=== PATIENT | male | born 1940 | race Caucasian/White ===

== ENCOUNTER 2018-11-05 08:45 | Outpatient (REF) | payer BC, SELFPAY ==
[2018-11-05 21:28] LABS: Anion Gap 11.2 mmol/L (3-11); BUN 14 mg/dL (7-18); CO2 23.8 mmol/L (21.0-32.0); CREATININE 1.07 mg/dL (0.70-1.30); Calcium 8.9 mg/dL (8.5-10.1); Chloride 106 mmol/L (98-107); Cholesterol 165 mg/dL (50-200); Glucose 104 mg/dL (70-100); HDL Cholesterol 29 mg/dL (40-60); LDL CHOLESTEROL 113 mg/dL (<100); Potassium 4.4 mmol/L (3.5-5.1); Sodium 141 mmol/L (136-145); Triglyceride 129 mg/dL (30-150)
== END 2018-11-05 09:05 ==
LOC: NCHCN 08:45
PROVIDERS: Visit Provider Internal Medicine
DX: Z00.00 Encounter for general adult medical examination without abnormal findings (principal); Z13.220 Encounter for screening for lipoid disorders
CPT/HCPCS: 80048; 80061; 83721

== ENCOUNTER 2020-04-09 22:17 | Outpatient (REF) | payer BC, SELFPAY ==
[2020-04-09 22:39] LABS: HCT 46.2 % (40.0-50.0); Mean Corp. HGB Concentration 34.6 g/dL (32.0-36.0); Mean Corpuscular Hemoglobin 34.9 pg (27.0-33.0); Mean Corpuscular Volume 100.9 fL (80-95); Mean Platelet Volume 11.9 fL (8.0-11.0); Platelet Count 120 x1000/uL (130-400); RBC 4.58 m/cumm (4.50-6.00); RBC Distribution Width 13.8 % (11.8-14.1); White Blood Cell Count 5.91 k/cumm (4.4-10.8)
[2020-04-09 22:53] LABS: ALT 75 U/L (16-63); AST 86 U/L (15-37); Albumin 3.3 g/dL (3.4-5.0); Alkaline Phosphatase 186 U/L (46-116); Anion Gap 9.7 mmol/L (3-11); BUN 12 mg/dL (7-18); Bilirubin, Total 0.7 mg/dL (0.2-1.0); CO2 23.3 mmol/L (21.0-32.0); CREATININE 1.06 mg/dL (0.70-1.30); Calcium 8.7 mg/dL (8.5-10.1); Calculated LDL 88 mg/dL (<100); Chloride 109 mmol/L (98-107); Cholesterol 143 mg/dL (<200); Glucose 82 mg/dL (74-106); HDL Cholesterol 31 mg/dL (40-60); Potassium 4.2 mmol/L (3.5-5.1); Sodium 142 mmol/L (136-145); Total Protein 7.1 g/dL (6.4-8.2); Triglyceride 123 mg/dL (<150)
[2020-04-09 23:00] LABS: Hemoglobin A1C 5.6 % (3.8-5.6)
== END 2020-04-09 22:37 ==
LOC: NCHCN 22:17
PROVIDERS: Visit Provider Internal Medicine
DX: I10 Essential (primary) hypertension (principal); K76.0 Fatty (change of) liver, not elsewhere classified
CPT/HCPCS: 80053; 80061; 85027; 83036

== ENCOUNTER 2021-02-06 21:05 | Outpatient (REF) | payer BC, SELFPAY ==
[2021-02-06 22:18] LABS: HCT 27.4 % (40.0-50.0); HGB 8.6 g/dL (13.5-17.5); MCH 31.7 pg (27.0-33.0); MCHC 31.4 % (32.0-36.0); MCV 101.1 fL (80-95); Platelet Count 175 10^3/uL (130-400); RBC 2.71 10^6/uL (4.36-5.78); RDW 19.5 % (11.8-14.1); RDW-SD 71.1 fL; WBC 7.45 10^3/uL (4.4-10.8)
[2021-02-06 22:31] LABS: ALT 88 U/L (16-63); AST 57 U/L (15-37); Albumin 2.3 g/dL (3.4-5.0); Alkaline Phosphatase 225 U/L (46-116); Anion Gap 9.1 mmol/L (3-11); BUN 12 mg/dL (7-18); Bilirubin, Total 0.6 mg/dL (0.2-1.0); CO2 24.9 mmol/L (21.0-32.0); CREATININE 1.2 mg/dL (0.70-1.30); Calcium 7.9 mg/dL (8.5-10.1); Calculated LDL 49 mg/dL (<100); Chloride 109 mmol/L (98-107); Cholesterol 93 mg/dL (<200); Estimated GFR 58.11 (mL/min/1.73m2); Glucose 93 mg/dL (74-106); HDL Cholesterol 28 mg/dL (40-60); Potassium 4.5 mmol/L (3.5-5.1); Sodium 143 mmol/L (136-145); Total Protein 5.3 g/dL (6.4-8.2); Triglyceride 82 mg/dL (<150)
== END 2021-02-06 21:06 | disposition home or self-care (01) ==
LOC: NCHCN 21:05
PROVIDERS: Visit Provider Internal Medicine
DX: I10 Essential (primary) hypertension (principal); K74.60 Unspecified cirrhosis of liver
CPT/HCPCS: 80053; 80061; 85027

== ENCOUNTER 2021-02-18 16:37 | Outpatient (REF) | payer BC, SELFPAY ==
[2021-02-18 21:27] LABS: INR 1.1 (0.9-1.1); Prothrombin Time 11.5 sec (9.3-11.0)
[2021-02-18 21:33] LABS: Abs Immature Grans 0.03 10^3/uL (0.0-0.06); Absolute Basophil Count 0.05 10^3/uL (0.0-0.2); Absolute Lymphocyte Count 1.75 10^3/uL (1.2-3.4); Absolute Monocyte Count 0.87 10^3/uL (0.1-0.8); Absolute Neutrophil Count 4.74 10^3/uL (1.2-6.7); Basophils % 0.7; Eosinophils % 2.6; HCT 29.8 % (40.0-50.0); HGB 9.1 g/dL (13.5-17.5); Immature Grans % 0.4; Lymphocytes % 22.9; MCH 31.2 pg (27.0-33.0); MCHC 30.5 % (32.0-36.0); MCV 102.1 fL (80-95); MPV 11.1 fL (8.0-11.0); Monocytes % 11.4; Nucleated RBC 0 %; Platelet Count 232 10^3/uL (130-400); RBC 2.92 10^6/uL (4.36-5.78); RDW 17.2 % (11.8-14.1); WBC 7.64 10^3/uL (4.4-10.8)
[2021-02-18 21:56] LABS: ALT 43 U/L (16-63); AST 39 U/L (15-37); Albumin 2.6 g/dL (3.4-5.0); Alkaline Phosphatase 164 U/L (46-116); BUN 13 mg/dL (7-18); Bilirubin, Total 0.4 mg/dL (0.2-1.0); CREATININE 1.1 mg/dL (0.70-1.30); Chloride 107 mmol/L (98-107); Glucose 112 mg/dL (74-106); Potassium 5.2 mmol/L (3.5-5.1); Sodium 140 mmol/L (136-145)
== END 2021-02-18 16:38 | disposition home or self-care (01) ==
LOC: NCHCN 16:37
PROVIDERS: Visit Provider Internal Medicine
DX: R10.13 Epigastric pain (principal); R18.8 Other ascites; K74.60 Unspecified cirrhosis of liver; K92.2 Gastrointestinal hemorrhage, unspecified
CPT/HCPCS: 80053; 85025; 85610

== ENCOUNTER 2021-02-19 14:47 | Outpatient (REF) | payer BC, SELFPAY ==
[2021-02-19 15:03] LABS: C Diff PCR Positive (Negative)
[2021-02-19 20:49] LABS: Campylobacter PCR Negative (Negative); Salmonella PCR Negative (Negative); Shiga Toxin PCR Negative (Negative); Shigella/Enteroinvasive Ecoli Negative (Negative)
== END 2021-02-19 14:48 | disposition home or self-care (01) ==
LOC: NCHCN 14:47
PROVIDERS: PCP Internal Medicine; Visit Provider Internal Medicine
DX: R19.7 Diarrhea, unspecified (principal); R10.13 Epigastric pain
CPT/HCPCS: 87329; 87493; 87505

== ENCOUNTER 2021-02-22 18:08 | Outpatient (REF) | payer BC, SELFPAY ==
[2021-02-22 21:30] LABS: Abs Immature Grans 0.04 10^3/uL (0.0-0.06); Absolute Basophil Count 0.06 10^3/uL (0.0-0.2); Absolute Eosinophil Count 0.25 10^3/uL (0.0-0.7); Absolute Lymphocyte Count 1.62 10^3/uL (1.2-3.4); Absolute Monocyte Count 0.82 10^3/uL (0.1-0.8); Absolute Neutrophil Count 5.17 10^3/uL (1.2-6.7); Basophils % 0.8; Eosinophils % 3.1; HCT 31.7 % (40.0-50.0); HGB 9.5 g/dL (13.5-17.5); Immature Grans % 0.5; Lymphocytes % 20.4; MCH 30.1 pg (27.0-33.0); MCV 100.3 fL (80-95); MPV 11.1 fL (8.0-11.0); Monocytes % 10.3; Neutrophils % 64.9; Nucleated RBC 0 %; Platelet Count 251 10^3/uL (130-400); RBC 3.16 10^6/uL (4.36-5.78); RDW 16.8 % (11.8-14.1); RDW-SD 61.8 fL; WBC 7.96 10^3/uL (4.4-10.8)
== END 2021-02-22 18:09 | disposition home or self-care (01) ==
LOC: NCHCN 18:08
PROVIDERS: PCP Internal Medicine; Visit Provider Internal Medicine
DX: K92.2 Gastrointestinal hemorrhage, unspecified (principal); R10.13 Epigastric pain; I86.4 Gastric varices
CPT/HCPCS: 85025

== ENCOUNTER 2021-03-14 14:57 | Outpatient (REF) | payer BC, SELFPAY ==
[2021-03-14 19:53] LABS: HCT 31.2 % (40.0-50.0); HGB 9.5 g/dL (13.5-17.5); MCH 29.7 pg (27.0-33.0); MCHC 30.4 % (32.0-36.0); MCV 97.5 fL (80-95); MPV 11.8 fL (8.0-11.0); Platelet Count 181 10^3/uL (130-400); RDW 16.7 % (11.8-14.1); RDW-SD 59.9 fL; WBC 5.51 10^3/uL (4.4-10.8)
[2021-03-14 20:02] LABS: ALT 26 U/L (16-63); AST 36 U/L (15-37); Albumin 2.8 g/dL (3.4-5.0); Alkaline Phosphatase 144 U/L (46-116); BUN 14 mg/dL (7-18); Bilirubin, Total 0.5 mg/dL (0.2-1.0); CREATININE 1.2 mg/dL (0.70-1.30); Calcium 8.8 mg/dL (8.5-10.1); Chloride 111 mmol/L (98-107); Estimated GFR 58.11 (mL/min/1.73m2); Glucose 87 mg/dL (74-106); Potassium 4.4 mmol/L (3.5-5.1); Sodium 144 mmol/L (136-145); Total Protein 6.4 g/dL (6.4-8.2)
== END 2021-03-14 14:58 | disposition home or self-care (01) ==
LOC: NCHCN 14:57
PROVIDERS: PCP Internal Medicine; Visit Provider Internal Medicine
DX: K74.60 Unspecified cirrhosis of liver (principal); K92.2 Gastrointestinal hemorrhage, unspecified
CPT/HCPCS: 80053; 85027

== ENCOUNTER 2021-04-05 21:22 | Outpatient (REF) | payer BC, SELFPAY ==
[2021-04-05 20:39] LABS: HCT 35.1 % (40.0-50.0); HGB 10.7 g/dL (13.5-17.5); MCHC 30.5 % (32.0-36.0); MCV 95.1 fL (80-95); MPV 12.3 fL (8.0-11.0); Platelet Count 164 10^3/uL (130-400); RBC 3.69 10^6/uL (4.36-5.78); RDW 16.7 % (11.8-14.1); RDW-SD 58.3 fL; WBC 6.16 10^3/uL (4.4-10.8)
[2021-04-05 21:00] LABS: Iron 33 ug/dL (65-175); Total Iron Binding Capacity 373 ug/dL (250-450); Transferrin Sat 9 % (20-55)
[2021-04-05 21:12] LABS: ALT 38 U/L (16-63); AST 31 U/L (15-37); Albumin 3.2 g/dL (3.4-5.0); Alkaline Phosphatase 179 U/L (46-116); Anion Gap 8.9 mmol/L (3-11); BUN 16 mg/dL (7-18); Bilirubin, Total 0.4 mg/dL (0.2-1.0); CO2 25.1 mmol/L (21.0-32.0); CREATININE 1.3 mg/dL (0.70-1.30); Calcium 8.6 mg/dL (8.5-10.1); Chloride 107 mmol/L (98-107); Estimated GFR 52.98 (mL/min/1.73m2); Ferritin 26 ng/mL (26-388); Glucose 83 mg/dL (74-106); Potassium 4.4 mmol/L (3.5-5.1); Sodium 141 mmol/L (136-145); Total Protein 7.1 g/dL (6.4-8.2)
== END 2021-04-05 21:23 | disposition home or self-care (01) ==
LOC: NCHCN 21:22
PROVIDERS: PCP Internal Medicine; Visit Provider Internal Medicine
DX: D64.9 Anemia, unspecified (principal); K74.60 Unspecified cirrhosis of liver; R53.83 Other fatigue
CPT/HCPCS: 80053; 85027; 82728; 83540; 83550

== ENCOUNTER 2021-07-08 11:10 | Outpatient (REF) | payer BC, SELFPAY ==
[2021-07-08 13:43] LABS: HCT 37.1 % (40.0-50.0); HGB 12.1 g/dL (13.5-17.5); MCH 30.8 pg (27.0-33.0); MCHC 32.6 % (32.0-36.0); MCV 94.4 fL (80-95); MPV 12.1 fL (8.0-11.0); Platelet Count 120 10^3/uL (130-400); RBC 3.93 10^6/uL (4.36-5.78); RDW 17.2 % (11.8-14.1); RDW-SD 60.2 fL; WBC 5.15 10^3/uL (4.4-10.8)
[2021-07-08 14:06] LABS: Iron 75 ug/dL (65-175); Total Iron Binding Capacity 346 ug/dL (250-450); Transferrin Sat 22 % (20-55)
[2021-07-08 14:22] LABS: ALT 32 U/L (16-63); AST 37 U/L (15-37); Alkaline Phosphatase 144 U/L (46-116); Anion Gap 8.8 mmol/L (3-11); BUN 16 mg/dL (7-18); Bilirubin, Total 0.8 mg/dL (0.2-1.0); CO2 25.2 mmol/L (21.0-32.0); CREATININE 1.2 mg/dL (0.70-1.30); Calcium 8.7 mg/dL (8.5-10.1); Chloride 112 mmol/L (98-107); Estimated GFR 58.11 (mL/min/1.73m2); Ferritin 35 ng/mL (26-388); Glucose 120 mg/dL (74-106); Potassium 3.9 mmol/L (3.5-5.1); Sodium 146 mmol/L (136-145); Total Protein 6.8 g/dL (6.4-8.2)
== END 2021-07-08 11:11 | disposition home or self-care (01) ==
LOC: NCHCN 11:10
PROVIDERS: PCP Internal Medicine; Visit Provider Internal Medicine
DX: D64.9 Anemia, unspecified (principal); K74.60 Unspecified cirrhosis of liver; K92.2 Gastrointestinal hemorrhage, unspecified
CPT/HCPCS: 80053; 85027; 82728; 83540; 83550

== ENCOUNTER 2021-10-03 16:36 | Outpatient (REF) | payer BC, SELFPAY ==
[2021-10-03 20:57] LABS: Abs Immature Grans 0.01 10^3/uL (0.0-0.06); Absolute Basophil Count 0.07 10^3/uL (0.0-0.2); Absolute Eosinophil Count 0.34 10^3/uL (0.0-0.7); Absolute Lymphocyte Count 2.06 10^3/uL (1.2-3.4); Absolute Monocyte Count 0.65 10^3/uL (0.1-0.8); Absolute Neutrophil Count 2.98 10^3/uL (1.2-6.7); Basophils % 1.1; Eosinophils % 5.6; HCT 40.8 % (40.0-50.0); HGB 13.4 g/dL (13.5-17.5); Immature Grans % 0.2; Lymphocytes % 33.7; MCH 31.5 pg (27.0-33.0); MCHC 32.8 % (32.0-36.0); MCV 95.8 fL (80-95); MPV 12.2 fL (8.0-11.0); Monocytes % 10.6; Neutrophils % 48.8; Nucleated RBC 0 %; Platelet Count 114 10^3/uL (130-400); RBC 4.26 10^6/uL (4.36-5.78); RDW 15.3 % (11.8-14.1); RDW-SD 54.6 fL; WBC 6.11 10^3/uL (4.4-10.8)
[2021-10-03 21:11] LABS: ALT 44 U/L (16-63); AST 40 U/L (15-37); Albumin 3.2 g/dL (3.4-5.0); Alkaline Phosphatase 148 U/L (46-116); Anion Gap 8.4 mmol/L (3-11); BUN 22 mg/dL (7-18); Bilirubin, Total 0.8 mg/dL (0.2-1.0); CO2 25.6 mmol/L (21.0-32.0); CREATININE 1.4 mg/dL (0.70-1.30); Calcium 8.8 mg/dL (8.5-10.1); Chloride 110 mmol/L (98-107); Estimated GFR 48.64 (mL/min/1.73m2); Glucose 106 mg/dL (74-106); Potassium 4.5 mmol/L (3.5-5.1); Sodium 144 mmol/L (136-145); Total Protein 7.1 g/dL (6.4-8.2)
== END 2021-10-03 16:37 | disposition home or self-care (01) ==
LOC: NCHCN 16:36
PROVIDERS: PCP Internal Medicine; Visit Provider Internal Medicine
DX: D64.9 Anemia, unspecified (principal); K74.60 Unspecified cirrhosis of liver
CPT/HCPCS: 80053; 85025

== ENCOUNTER 2021-11-01 15:04 | Outpatient (REF) | payer BC, SELFPAY ==
[2021-11-01 21:32] LABS: Anion Gap 8.6 mmol/L (3-11); BUN 20 mg/dL (7-18); CO2 24.4 mmol/L (21.0-32.0); CREATININE 1.2 mg/dL (0.70-1.30); Calcium 8.5 mg/dL (8.5-10.1); Chloride 110 mmol/L (98-107); Estimated GFR 58.11 (mL/min/1.73m2); Glucose 87 mg/dL (74-106); Potassium 4.9 mmol/L (3.5-5.1); Sodium 143 mmol/L (136-145)
== END 2021-11-01 15:05 | disposition home or self-care (01) ==
LOC: NCHCN 15:04
PROVIDERS: PCP Internal Medicine; Visit Provider Internal Medicine
DX: K74.60 Unspecified cirrhosis of liver (principal); D12.6 Benign neoplasm of colon, unspecified
CPT/HCPCS: 80048

== ENCOUNTER 2021-12-26 16:50 | Outpatient (REF) | payer BC, SELFPAY ==
[2021-12-26 15:57] LABS: Abs Immature Grans 0.01 10^3/uL (0.0-0.06); Absolute Basophil Count 0.07 10^3/uL (0.0-0.2); Absolute Eosinophil Count 0.31 10^3/uL (0.0-0.7); Absolute Lymphocyte Count 1.32 10^3/uL (1.2-3.4); Absolute Monocyte Count 0.63 10^3/uL (0.1-0.8); Absolute Neutrophil Count 3.39 10^3/uL (1.2-6.7); Basophils % 1.2; Eosinophils % 5.4; HCT 42.1 % (40.0-50.0); HGB 13.4 g/dL (13.5-17.5); Immature Grans % 0.2; MCH 32.1 pg (27.0-33.0); MCHC 31.8 % (32.0-36.0); MCV 100.7 fL (80-95); MPV 12.3 fL (8.0-11.0); Neutrophils % 59.2; Nucleated RBC 0 %; Platelet Count 123 10^3/uL (130-400); RBC 4.18 10^6/uL (4.36-5.78); RDW 14.5 % (11.8-14.1); WBC 5.73 10^3/uL (4.4-10.8)
[2021-12-26 16:30] LABS: Anion Gap 9.1 mmol/L (3-11); BUN 14 mg/dL (7-18); CO2 25.9 mmol/L (21.0-32.0); CREATININE 1.1 mg/dL (0.70-1.30); Calcium 8.7 mg/dL (8.5-10.1); Chloride 107 mmol/L (98-107); Ferritin 39 ng/mL (26-388); Glucose 92 mg/dL (74-106); Potassium 4.3 mmol/L (3.5-5.1); Sodium 142 mmol/L (136-145); Vitamin B12 573 pg/mL (193-986)
== END 2021-12-26 16:51 | disposition home or self-care (01) ==
LOC: NCHCN 16:50
PROVIDERS: PCP Internal Medicine; Visit Provider Internal Medicine
DX: D64.9 Anemia, unspecified (principal); K74.60 Unspecified cirrhosis of liver
CPT/HCPCS: 80048; 82607; 82728; 85025

== ENCOUNTER 2022-05-02 16:39 | Outpatient (REF) | payer BC, SELFPAY ==
[2022-05-02 14:24] LABS: Abs Immature Grans 0.02 10^3/uL (0.0-0.06); Absolute Basophil Count 0.11 10^3/uL (0.0-0.2); Absolute Eosinophil Count 0.45 10^3/uL (0.0-0.7); Absolute Lymphocyte Count 1.63 10^3/uL (1.2-3.4); Absolute Monocyte Count 0.95 10^3/uL (0.1-0.8); Absolute Neutrophil Count 4.05 10^3/uL (1.2-6.7); Basophils % 1.5; Eosinophils % 6.2; HCT 39.5 % (40.0-50.0); HGB 12.8 g/dL (13.5-17.5); Immature Grans % 0.3; Lymphocytes % 22.6; MCH 31.1 pg (27.0-33.0); MCHC 32.4 % (32.0-36.0); MCV 96 fL (80-95); MPV 11.5 fL (8.0-11.0); Monocytes % 13.2; Neutrophils % 56.2; Platelet Count 134 10^3/uL (130-400); RBC 4.12 10^6/uL (4.36-5.78); RDW-SD 56.7 fL; WBC 7.21 10^3/uL (4.4-10.8)
[2022-05-02 14:42] LABS: ALT 44 U/L (16-63); AST 63 U/L (15-37); Alkaline Phosphatase 181 U/L (46-116); Anion Gap 10.7 mmol/L (3-11); BUN 10 mg/dL (7-18); Bilirubin, Total 1.1 mg/dL (0.2-1.0); CO2 23.3 mmol/L (21.0-32.0); CREATININE 1.2 mg/dL (0.70-1.30); Calcium 8.2 mg/dL (8.5-10.1); Chloride 109 mmol/L (98-107); Estimated GFR 57.96 (mL/min/1.73m2); Glucose 81 mg/dL (74-106); Sodium 143 mmol/L (136-145); Total Protein 6.9 g/dL (6.4-8.2)
[2022-05-02 15:42] LABS: INR 1.2 (0.9-1.1); Prothrombin Time 12.3 sec (9.3-11.0)
== END 2022-05-02 16:40 | disposition home or self-care (01) ==
LOC: NCHCN 16:39
PROVIDERS: PCP Internal Medicine; Visit Provider Internal Medicine
DX: K74.60 Unspecified cirrhosis of liver (principal)
CPT/HCPCS: 80053; 85025; 85610

== ENCOUNTER 2022-06-06 15:20 | Outpatient (REF) | payer BC, SELFPAY ==
[2022-06-06 15:38] LABS: Abs Immature Grans 0.02 10^3/uL (0.0-0.06); Absolute Basophil Count 0.08 10^3/uL (0.0-0.2); Absolute Lymphocyte Count 1.17 10^3/uL (1.2-3.4); Absolute Monocyte Count 0.73 10^3/uL (0.1-0.8); Basophils % 1.3; Eosinophils % 3.2; HCT 39.1 % (40.0-50.0); HGB 13.1 g/dL (13.5-17.5); Immature Grans % 0.3; Lymphocytes % 18.6; MCH 32.1 pg (27.0-33.0); MCHC 33.5 % (32.0-36.0); MCV 96 fL (80-95); MPV 12.2 fL (8.0-11.0); Monocytes % 11.6; Platelet Count 123 10^3/uL (130-400); RBC 4.08 10^6/uL (4.36-5.78); RDW 16.8 % (11.8-14.1); RDW-SD 59.3 fL
[2022-06-06 15:53] LABS: INR 1.3 (0.9-1.1); Prothrombin Time 12.8 sec (9.3-11.0)
[2022-06-06 16:41] LABS: ALT 46 U/L (16-63); AST 81 U/L (15-37); Albumin 2.9 g/dL (3.4-5.0); Alkaline Phosphatase 237 U/L (46-116); Anion Gap 8.6 mmol/L (3-11); BUN 11 mg/dL (7-18); Bilirubin, Total 1.4 mg/dL (0.2-1.0); CO2 25.4 mmol/L (21.0-32.0); CREATININE 1.1 mg/dL (0.70-1.30); Calcium 8.3 mg/dL (8.5-10.1); Chloride 107 mmol/L (98-107); Glucose 111 mg/dL (74-106); Potassium 4.2 mmol/L (3.5-5.1); Sodium 141 mmol/L (136-145); Total Protein 6.9 g/dL (6.4-8.2)
== END 2022-06-06 15:21 | disposition home or self-care (01) ==
LOC: NCHCN 15:20
PROVIDERS: PCP Internal Medicine; Visit Provider Internal Medicine
DX: D64.9 Anemia, unspecified (principal); K74.60 Unspecified cirrhosis of liver; K92.2 Gastrointestinal hemorrhage, unspecified
CPT/HCPCS: 80053; 85025; 85610

== ENCOUNTER 2022-07-15 13:57 | Outpatient (REF) | payer BC, SELFPAY ==
[2022-07-15 20:40] LABS: Abs Immature Grans 0.04 10^3/uL (0.0-0.06); Absolute Eosinophil Count 0.18 10^3/uL (0.0-0.7); Absolute Lymphocyte Count 1.17 10^3/uL (1.2-3.4); Absolute Monocyte Count 0.99 10^3/uL (0.1-0.8); Absolute Neutrophil Count 6.32 10^3/uL (1.2-6.7); Basophils % 1.1; HCT 41.2 % (40.0-50.0); HGB 13.8 g/dL (13.5-17.5); Immature Grans % 0.5; Lymphocytes % 13.3; MCH 32.9 pg (27.0-33.0); MCHC 33.5 % (32.0-36.0); MCV 98 fL (80-95); MPV 11.7 fL (8.0-11.0); Monocytes % 11.3; Neutrophils % 71.8; Platelet Count 119 10^3/uL (130-400); RDW 16.6 % (11.8-14.1); RDW-SD 60.1 fL
[2022-07-15 20:42] LABS: INR 1.4 (0.9-1.1); Prothrombin Time 13.7 sec (9.3-11.0)
[2022-07-15 20:42] LABS: ALT 57 U/L (16-63); AST 110 U/L (15-37); Albumin 2.7 g/dL (3.4-5.0); Alkaline Phosphatase 193 U/L (46-116); Anion Gap 9.6 mmol/L (3-11); BUN 11 mg/dL (7-18); Bilirubin, Total 2.3 mg/dL (0.2-1.0); CO2 23.4 mmol/L (21.0-32.0); CREATININE 1.2 mg/dL (0.70-1.30); Calcium 8.7 mg/dL (8.5-10.1); Chloride 106 mmol/L (98-107); Estimated GFR 57.96 (mL/min/1.73m2); Glucose 139 mg/dL (74-106); Sodium 139 mmol/L (136-145); Total Protein 7.4 g/dL (6.4-8.2)
== END 2022-07-15 13:58 | disposition home or self-care (01) ==
LOC: NCHCN 13:57
PROVIDERS: PCP Internal Medicine; Visit Provider Nurse Practitioner Family
DX: K74.60 Unspecified cirrhosis of liver (principal)
CPT/HCPCS: 80053; 85025; 85610